=== PATIENT | female | born 1970 | race African-American/Black ===

== ENCOUNTER 2023-11-27 12:07 | Emergency (ER) | payer MEDICAID, OTHER ==
[~2023-11-27] VITALS: Ht 167.6 cm; Wt 86.0 kg
[2023-11-27 12:17] VITALS: O2SAT 99
[2023-11-27 13:15] LABS: BASOPHILS % 0.4 % (0.0-2.0); EOSINOPHILS % 0.4 % (0.0-5.0); HEMATOCRIT. 44.2 % (36.0-48.0); HEMOGLOBIN. 15.3 g/dL (12.0-16.0); LYMPHOCYTES % 21.5 % (20.0-50.0); MEAN CORPUSCULAR HEMOGLOBIN 32.6 pg (28.0-32.0); MEAN CORPUSCULAR HGB CONC 34.7 g/dL (31.0-37.0); MEAN CORPUSCULAR VOLUME 93.8 fL (81.0-99.0); MEAN PLATELET VOLUME 8.1 fl (7.4-10.4); NEUTROPHILS % 71.7 % (40.0-76.0); PLATELET 207 x1000/uL (130-400); RED BLOOD CELL COUNT 4.71 mill/uL (4.2-5.4); RED CELL DISTRIBUTION WIDTH 14.3 % (11.6-14.6); WHITE BLOOD COUNT 6.6 x1000/uL (4.5-11.0)
[2023-11-27 13:55] LABS: CLARITY URINE TURBID (CLEAR); COLOR URINE RED (YELLOW); GLUCOSE URINE NEGATIVE (NEGATIVE); KETONES URINE NEGATIVE (NEGATIVE); LEUKOCYTE ESTERASE URINE 2+ (NEGATIVE); NITRITE URINE POSITIVE (NEGATIVE); OCCULT BLOOD URINE 3+ (NEGATIVE); PROTEIN URINE 2+ (NEGATIVE); UROBILINOGEN URINE 0.2 E.U./dL (0.2-1.0)
[2023-11-27 14:03] LABS: HCG SCREEN NEGATIVE
[2023-11-27 14:08] LABS: BACTERIA URINE FEW; RBC URINE TNTC /hpf (0-2); SQUAMOUS EPITHELIAL CELL URINE FEW /lpf (RARE/1+); YEAST URINE NONE SEEN
[2023-11-27] MEDS ORDERED: SULF1TAB48 MT (14:37)
[2023-11-27 15:05] LABS: CHLORIDE 104 mEq/L (98-107); SODIUM 138 mEq/L (136-145)
[2023-11-27 15:06] LABS: CALCIUM 9.4 mg/dL (8.7-10.4); CARBON DIOXIDE 27 mEq/L (21-32)
[2023-11-27 15:11] LABS: CREATININE 0.7 mg/dL (0.6-1.0); GLUCOSE 111 mg/dL (70-105); UREA NITROGEN BLOOD 7 mg/dL (9-23)
[2023-11-27 15:13] LABS: ALANINE AMINOTRANSFERASE 10 IU/L (10-49); ALBUMIN 4.4 g/dL (3.2-4.8); ASPARTATE AMINOTRANSFERASE 22 IU/L (<34); BILIRUBIN TOTAL 0.4 mg/dL (0.1-1.0)
[2023-11-27 15:15] LABS: PROTEIN TOTAL 7.5 g/dL (6.0-8.3)
[2023-11-27] MEDS ORDERED: IOHEXOL-300 100 ML BOTTLE ONE (23:03)
[2023-11-27 23:58] VITALS: BP 186/108; PULSE 96; RESP 14; TEMP 98
== END 2023-11-27 23:51 | disposition home or self-care (01) ==
LOC: ER 13:11
DX: N93.9 Abnormal uterine and vaginal bleeding, unspecified (principal); N39.0 Urinary tract infection, site not specified
CPT/HCPCS: 80053; 81003; 81025; 84703; 83690; 85025; 86850; 86900; 86901; 36415; 74177; 76830; 76856; 99285; Q9967; Z7610